=== PATIENT | female | born 1955 | race Caucasian/White ===

== ENCOUNTER 2016-12-09 14:49 | Emergency (ER) | payer BC ==
[~2016-12-09] VITALS: Ht 154.9 cm; Wt 63.0 kg
[~2016-12-09 14:49] MED LIST: AMBIEN10 MG PO; CHANTIX1 MG PO; GLUCOPHAGE500 MG PO; LIPITOR20 MG PO; STRATTERA80 MG PO; SYNTHROID75 MCG PO
[2016-12-09] MEDS ORDERED: NAPROSYN500 MG PO (16:28)
[2016-12-09] MEDS ORDERED: ULTRAM50 MG PO (16:33)
[2016-12-09 16:47] VITALS: BP 107/72
== END 2016-12-09 16:54 | disposition home or self-care (01) ==
LOC: EME 14:49
DX: M17.11 Unilateral primary osteoarthritis, right knee (principal)
CPT/HCPCS: 73564; 99281; 99283

== ENCOUNTER 2018-01-08 15:47 | Emergency (ER) | payer BC ==
[~2018-01-08] VITALS: Ht 154.9 cm; Wt 62.4 kg
[~2018-01-08 15:47] MED LIST changes: +NAPROSYN500 MG PO; +ULTRAM50 MG PO
[2018-01-08 16:29] LABS: HEMATOCRIT 38.8 % (36.0-46.0); HEMOGLOBIN 12.6 G/DL (11.9-15.5); MCH 26.5 PG (29.0-34.0); MCHC 32.5 G/DL (30.0-36.0); MCV 81.5 FL (83-99); PLATELET COUNT 327 K/uL (156-360); RBC DIS.WIDTH-CV 14.5 % (11.8-14.6); RBC DIS.WIDTH-SD 43.1 % (39-53); RED BLOOD COUNT 4.76 M/uL (3.80-5.20); WHITE BLOOD COUNT 8.6 K/uL (4.1-10.2)
[2018-01-08 16:41] LABS: APPEARANCE SL.HAZY ((CLEAR)); BILIRUBIN NEGATIVE; BLOOD LARGE; COLOR YELLOW ((YELLOW)); GLUCOSE (STRIP) NEGATIVE; KETONES NEGATIVE; LEUKOCYTES NEGATIVE; NITRITE NEGATIVE; PROTEIN (STRIP) 100; SPECIFIC GRAVITY 1.028 (1.000-1.030)
[2018-01-08 16:42] LABS: CHLORIDE 110 mEq/L (99-109); POTASSIUM 3.8 mEq/L (3.7-5.4); SODIUM 139 mEq/L (136-147)
[2018-01-08 16:43] LABS: GLUCOSE 138 mg/dL (70-99)
[2018-01-08 16:47] LABS: CREATININE 0.9 mg/dL (0.6-1.3); GFR ESTIMATE (CALCULATED) > 59 mL/min/
[2018-01-08 16:48] LABS: UREA NITROGEN (BUN) 13 mg/dL (9-23)
[2018-01-08 16:56] LABS: BACTERIA RARE /HPF; EPITHELIAL CELLS 1+ /HPF; MUCUS TRACE /LPF; RED BLOOD CELLS TNTC /HPF (0-5); WHITE BLOOD CELLS RARE /HPF (0-5)
[2018-01-08] MEDS ORDERED: NORCO 5/3251 TABLET PO (19:31)
[2018-01-08 19:41] VITALS: BP 117/79
== END 2018-01-08 19:42 | disposition home or self-care (01) ==
LOC: EME 15:47 → RME 15:47
PROVIDERS: Physician Assistant
DX: N20.0 Calculus of kidney (principal); K57.50 Diverticulosis of both small and large intestine without perforation or abscess without bleeding; N28.1 Cyst of kidney, acquired; Z90.49 Acquired absence of other specified parts of digestive tract; Z98.84 Bariatric surgery status; Z87.442 Personal history of urinary calculi; E03.9 Hypothyroidism, unspecified; E78.5 Hyperlipidemia, unspecified; E11.9 Type 2 diabetes mellitus without complications; Z79.84 Long term (current) use of oral hypoglycemic drugs; F17.200 Nicotine dependence, unspecified, uncomplicated
CPT/HCPCS: 74176; 80048; 81003; 85027; 99281; 99284

== ENCOUNTER → 2018-01-13 | Outpatient (CLI) | payer BC ==
[~2018-01-13] MED LIST changes: +NORCO 5/3251 TABLET PO
== END | disposition home or self-care (01) ==
LOC: CDC 10:39
DX: Z01.810 Encounter for preprocedural cardiovascular examination (principal); J98.4 Other disorders of lung; R94.31 Abnormal electrocardiogram [ECG] [EKG]
CPT/HCPCS: 93000